=== PATIENT | female | born 1990 | race Caucasian/White ===

== ENCOUNTER → 2016-08-22 | Outpatient (CLI) | payer MEDICAID ==
[~2016-08-22] MED LIST: GADOBUTROL 10 MMOL/10 ML PFS ONE; NORG1TAB6 PO; WARF5TAB7 PO-COUM
== END | disposition home or self-care (01) ==
LOC: CFH 12:54
PROVIDERS: ATTEND Registered Nurse
DX: R51 Headache (principal)
CPT/HCPCS: 70553; A9585

== ENCOUNTER 2016-09-09 18:50 | Emergency (ER) | payer MEDICAID ==
[~2016-09-09] VITALS: Ht 152.4 cm; Wt 81.2 kg
[~2016-09-09 18:50] MED LIST changes: -GADOBUTROL 10 MMOL/10 ML PFS ONE
[2016-09-09 18:51] VITALS: BP 114/78
[2016-09-09] MEDS ORDERED: LIDOCAINE 1%, 20ML ONE (19:27)
[2016-09-09] MEDS ORDERED: DIPH,PERTUSS(ACELL),TET VAC/PF 0.5 ML IM-VACC ONE ×2 (19:27→19:30)
[2016-09-09] MEDS ORDERED: LIDOCAINE 1%, 20ML SQ ONE (19:30)
== END 2016-09-09 20:16 | disposition home or self-care (01) ==
LOC: ED 20:00
DX: S61.011A Laceration without foreign body of right thumb without damage to nail, initial encounter (principal); X58.XXXA Exposure to other specified factors, initial encounter; Y93.89 Activity, other specified; Y99.8 Other external cause status; Y92.009 Unspecified place in unspecified non-institutional (private) residence as the place of occurrence of the external cause
CPT/HCPCS: 12001; 90471; 90715

== ENCOUNTER → 2017-04-02 | Outpatient (CLI) | payer MEDICAID | LOC: CFH 08:52 | PROVIDERS: ATTEND Registered Nurse | DX: Z02.9 Encounter for administrative examinations, unspecified (principal) ==

== ENCOUNTER → 2017-04-23 | Outpatient (CLI) | payer MEDICAID ==
[~2017-04-23] MED LIST changes: +GADOBUTROL 7.5 MMOL/7.5 ML PFS ONE
== END | disposition home or self-care (01) ==
LOC: CFH 12:03
PROVIDERS: ATTEND Registered Nurse
DX: I74.8 Embolism and thrombosis of other arteries (principal); R51 Headache
CPT/HCPCS: 70546; A9585

== ENCOUNTER 2018-04-19 16:20 | Emergency (ER) | payer OTHER ==
[~2018-04-19] VITALS: Ht 165.1 cm; Wt 74.3 kg
[~2018-04-19 16:20] MED LIST changes: -GADOBUTROL 7.5 MMOL/7.5 ML PFS ONE; +WARF-36 PO-COUM; -WARF5TAB7 PO-COUM
[2018-04-19 16:36] VITALS: BP 109/43
--- NOTE | 2018-04-19 16:40 | NUR ---
PT HERE FOR LEFT TOE INFECTION. PT PULLED OFF PART OF NAIL AND AFTERWARDS HAD INFECTION SYMPTOMS. PT RESTING IN BED. AWAITING FURTHER ORDERS.
[2018-04-19] MEDS ORDERED: LIDOCAINE 1%-EPI 1:100K, 20ML ONE (16:53)
[2018-04-19] MEDS ORDERED: LIDOCAINE-MPF 1%, 5ML ONE (16:53)
[2018-04-19] MEDS ORDERED: CEFTRIAXONE 1,000 MG ONE (16:53)
[2018-04-19] MEDS ORDERED: CEFTRIAXONE 1,000 MG IM ONE (17:00)
--- NOTE | 2018-04-19 17:10 | NUR ---
PT MEDICATED PER EMAR. PT HAD LOCAL ANESHETIC TO LEFT BIG TOE.
--- NOTE | 2018-04-19 17:49 | NUR ---
LEFT TOE DRESSED AND XEROFORM DRESSING APPLIED TO TOE.
--- NOTE | 2018-04-19 17:59 | NUR ---
Patient/Caregiver given discharge instructions and they have confirmed that they understand the instructions. Patient ambulatory with steady gait.
== END 2018-04-19 18:19 | disposition home or self-care (01) ==
LOC: ED 18:05
DX: L60.0 Ingrowing nail (principal)
CPT/HCPCS: 11730; 96372; 99283; J0696

== ENCOUNTER 2019-03-12 15:12 | Emergency (ER) | payer OTHER ==
[~2019-03-12] VITALS: Ht 152.4 cm; Wt 71.1 kg
[2019-03-12 16:06] LABS: BASOPHILS # (AUTO) 0.05 x10^3/uL (0-0.1); BASOPHILS % (AUTO) 1 % (0-1); EOSINOPHILS # (AUTO) 0.12 x10^3/uL (0-0.4); EOSINOPHILS % (AUTO) 2 % (1-7); LYMPHOCYTES # (AUTO) 1.75 x10^3/uL (1-3.4); LYMPHOCYTES % (AUTO) 21 % (22-44); MD NO; MEAN CORPUSCULAR HGB CONC 33.2 g/dL (32.4-35.8); MEAN CORPUSCULAR VOLUME 90.3 fL (80-100); MEAN PLATELET VOLUME 9.8 fL (7.4-10.4); MONOCYTES # (AUTO) 0.66 x10^3/uL (0.2-0.8); MONOCYTES % (AUTO) 8 % (2-9); NEUTROPHILS # (AUTO) 5.75 x10^3/uL (1.8-6.8); NEUTROPHILS % (AUTO) 69 % (42-75); PLATELET COUNT 225 x10^3/uL (130-400); RED BLOOD COUNT 4.49 x10^6/uL (3.82-5.3)
--- NOTE | 2019-03-12 16:11 | NUR ---
pt to ct
[2019-03-12 16:14] LABS: ALBUMIN 3.6 g/dL (3.4-5.0); ANION GAP 4 mmol/L (5-15); CALCIUM 8.8 mg/dL (8.5-10.1); CHLORIDE 113 mmol/L (98-107)
[2019-03-12 16:21] LABS: INTERNATIONAL NORMALIZED RATIO 0.99 (0.93-1.1); PROTHROMBIN TIME 10.4 Seconds (9.6-11.5)
--- NOTE | 2019-03-12 16:47 | NUR ---
PT RESTING IN [facility], AWAITING ADDITIONAL LAB WORK. PT STATES FLORES AND DIZZINESS ARE CURRENTLY GONE.
[2019-03-12 17:43] VITALS: BP 109/50
--- NOTE | 2019-03-12 17:44 | NUR ---
ERP WAS IN FOR RE-EVAL. D/C INSTRUCTIONS & F/U APPT RV'WD WITH PT, SHE VERBALIZES UNDERSTANDING. AMBULATED OUT OF ED WITH MOTHER WITHOUT DIFFICULTY.
== END 2019-03-12 17:45 | disposition home or self-care (01) ==
LOC: ED 16:59
DX: G43.909 Migraine, unspecified, not intractable, without status migrainosus (principal)
CPT/HCPCS: 36415; 70450; 80048; 82040; 84703; 85025; 85610; 93005; 99284

== ENCOUNTER 2019-03-25 09:32 | Emergency (ER) | payer SELFPAY ==
[~2019-03-25] VITALS: Ht 152.4 cm; Wt 69.0 kg
[2019-03-25 09:35] VITALS: BP 112/71
--- NOTE | 2019-03-25 09:47 | NUR ---
PT HERE TODAY FOR BODY ACHES, EAR ACHE, FEVER (WAS 89 AT HOME ON FRIDAY, AFEBRILE IN ER.) PT RESTING ON GURNEY. ROTHMAN.
[2019-03-25 10:47] LABS: RAPID INFLUENZA A Negative (Negative); RAPID INFLUENZA B POSITIVE (Negative)
== END 2019-03-25 11:24 | disposition home or self-care (01) ==
LOC: ED 11:17
DX: J10.1 Influenza due to other identified influenza virus with other respiratory manifestations (principal)
CPT/HCPCS: 71046; 87081; 87147; 87400; 87880; 99284